=== PATIENT | female | born 1950 | race Caucasian/White ===

== ENCOUNTER 2017-07-28 09:37 | Outpatient (CLI) | payer MEDICARE ==
--- NOTE | 2017-07-28 14:51 | PET ---
PET CT: HISTORY: A 67-year-old female with right breast cancer. Exam requested for staging. Last chemotherapy was in December 2009 and radiation therapy to the right breast in 1997. The patient had a right breast lumpect diana in 1997 and mastectomy in 2009. The patient had right hip deneen and screw plate placement 1 week a go. TECHNIQUE: PET scanning with CT attenuation correction was performed from the base of the brain through the prox imal thighs following the intravenous administration of 12 mCi 15-fluorodeoxyglucose in the left wris t. Imaging was performed after an uptake interval of 46 minutes. COMPARISON: None. FINDINGS: Reba hypermetabolism is seen in the right supraclavicular (SUV 9.6), right pectoral (SUV 7.9), left internal mammary (SUV 6.1), and right internal mammary (superior 12.7 and inferior 16.3) lymph nodes. The hypermetabolic right inferior internal mammary lymphadenopathy appears to extend into the chest wall. Hypermetabolic lesions are seen in the skeleton involving the posterior aspect of the left 5th rib (S UV 4.6), right iliac bone (SUV 11.2), and the right posterior acetabulum (SUV 18.8). These findings are consistent with osseous metastatic disease. Increased uptake in the right proximal femur (SUV 16 .4) is likely due to recent internal fixation of the right proximal femoral fracture. No hypermetabolic pulmonary nodules, liver, or adrenal glands are seen. There is physiologic activity in the GI and tracts and the visualized portions of the brain. The CT scan used for attenuation correction demonstrates no evidence of pleural effusions or ascites. Calcified uterine fibroids are seen. IMPRESSION: Findings are consistent with multiple lymph reba and osseous metastases. POS: SONYA
== END 2017-07-28 09:38 | disposition home or self-care (01) ==
LOC: PET 09:37
PROVIDERS: ATTEND Internal Medicine Hematology & Oncology
DX: C50.919 Malignant neoplasm of unspecified site of unspecified female breast (principal)
CPT/HCPCS: 78815; A9552

== ENCOUNTER 2017-08-01 10:47 | Outpatient (CLI) | payer MEDICARE ==
[~2017-08-01 10:47] MED LIST: Iopamidol 370 76% 100 ML VIAL ONE
--- NOTE | 2017-08-01 14:29 | CT ---
PRE AND POST CONTRAST ENHANCED CT IMAGES IN THE BRAIN: HISTORY: Breast cancer with bone metastases. FINDINGS: Pre and postcontrast-enhanced CT images of the brain obtained. Images demonstrate an area of hyperdensity and calcification in the posterior aspect of the left fron favian inner table of the skull compatible with likely small calcified meningioma. No other obvious calvarial bony lesions seen. The rest of the brain is unremarkable. No evidence of abnormal areas of intracranial enhancement see n. No evidence of intra- or extraaxial mass is seen otherwise. No evidence of abnormal areas of adin ma seen. The ventricles are midline. No evidence of midline shift is seen. IMPRESSION: Unremarkable pre- and postcontrast-enhanced CT images brain. POS: SONYA
== END 2017-08-01 10:48 | disposition home or self-care (01) ==
LOC: CT 10:47
PROVIDERS: ATTEND Internal Medicine Hematology & Oncology
DX: C50.919 Malignant neoplasm of unspecified site of unspecified female breast (principal); C79.51 Secondary malignant neoplasm of bone
CPT/HCPCS: 70470; 82565

== ENCOUNTER 2017-10-27 09:30 | Outpatient (CLI) | payer MEDICARE ==
--- NOTE | 2017-10-27 15:35 | PET ---
PET WITH CT FROM SKULL TO MID THIGH: INDICATION: History of right-sided breast cancer with bone metastasis. RADIOPHARMACEUTICAL: 10.7 mCi of F18-FDG IV. TECHNIQUE: PET images were obtained after administration of the radiopharmaceutical IV. CT images were obtained for attenuation correction purposes only. The examination was compared to a prior PET CT dated 07/28/17. FINDINGS: Biodistribution: The biodistribution for the examination appears acceptable. Head/Neck: No hypermetabolic lymphadenopathy or mass is identified. Thorax: There is a hypermetabolic right internal mammary lymph node seen adjacent to the SVC measuring 1.4 cm with a maximum SUV uptake of 3.3 and a mean uptake of 3.01. This lesion on the prior evaluation was much larger, measuring 2.0 cm, with a maximum SUV uptake of 10.5 and a mean value of 10.5. Additional smaller hypermetabolic lymph nodes are seen along the right internal mammary chain and are much impr florecita in terms of size and hypermetabolic uptake. One of the larger internal mammary lymph nodes seen within the lower aspect of the right internal mammary chain is significantly reduced in size, now 8.0 mm, where it previously measured 3.4 cm. The peak activity on the current exam is 2.99 and mean valu e is 2.99. Peak activity on this lymph node on the prior exam was 13.1 and mean value was 11.4. There is stable postprocedural change of a mitral valve replacement. No hypermetabolic pulmonary nodule or pleural effusion is evident. The hypermetabolic supraclavicular lymph node is no longer demonstrated. The hypermetabolic right axi llary lymph node is no longer demonstrated. Abdomen/Pelvis: There is stable atrophy of the right kidney. No hypermetabolic lymphadenopathy or mass is identified. There is a fibroid uterus. Skin/Osseous Structures: There is some remaining hypermetabolic activity involving the proximal right femur adjacent to the pa tient's right cephalomedullary device, which is suspicious for the presence of an osteoblastic lesion , medially near the lesser trochanter, on image 231. The maximum uptake is 4.5 and mean value is 4.8. The hypermetabolic lesion involving the right ischial tuberosity has decreased in uptake, now measu ring (peak SUV) 1.76 and (mean SUV)1.8. This previously measured 14.18 as a peak uptake and a mean up take of 10.99. The hypermetabolic activity involving the posterior left fifth rib has significantly r educed in prominence, now with a peak activity of 1.48 and mean value of 1.3, where it previously jer sured 4.24 and 3.48. Mild activity is again seen in both AC joints, likely degenerative in nature. IMPRESSION: Abnormal PET CT: 1. Significant improvement in terms of the hypermetabolic lymphadenopathy seen involving the interna l mammary chain on the right, as well as right supraclavicular and right axillary lymph node distribu tions. No new hypermetabolic lymphadenopathy is evident. 2. Significant improvement in the amount of hypermetabolic activity seen involving the osseous metas tatic disease of the ribs and right hemipelvis. There is a focus of hypermetabolic activity with incr eased sclerosis involving the posterior medial calcar and lesser trochanter of the right proximal fem ur likely related to a metastatic lesion in this location. This is also significantly improved from t he prior exam. POS: SONYA
== END 2017-10-27 09:31 | disposition home or self-care (01) ==
LOC: PET 09:30
PROVIDERS: ATTEND Internal Medicine Hematology & Oncology
DX: C79.51 Secondary malignant neoplasm of bone (principal); C50.919 Malignant neoplasm of unspecified site of unspecified female breast; R59.0 Localized enlarged lymph nodes
CPT/HCPCS: 78815; A9552

== ENCOUNTER 2018-03-28 11:09 | Outpatient (CLI) | payer MEDICARE ==
--- NOTE | 2018-03-28 15:44 | PET ---
RADIONUCLIDE PET SCAN WITH CT ATTENUATION CORRECTION: HISTORY: Breast cancer with metastatic disease. Restaging. COMPARISON: 10/27/17. FINDINGS: Physiologic uptake of radiotracer throughout the enteric system and along each urinary tract. The pre viously hypermetabolic right internal mammary lymph node is no longer visible, with no abnormal uptak e along the right internal mammary chain on the current study. In the areas of previously described hypermetabolic activity associated with the bones of the pelvis, no hypermetabolic activity is apparent on the current exam. No new areas of abnormal uptake are evident. Right breast is surgically absent. IMPRESSION: Complete response to therapy, with resolution of the adenopathy and hypermetabolic bone lesions. No n ew abnormalities are evident. POS: SONYA
== END 2018-03-28 11:10 | disposition home or self-care (01) ==
LOC: PET 11:09
PROVIDERS: ATTEND Internal Medicine Hematology & Oncology
DX: C50.919 Malignant neoplasm of unspecified site of unspecified female breast (principal); C79.51 Secondary malignant neoplasm of bone; R59.9 Enlarged lymph nodes, unspecified
CPT/HCPCS: 78815; A9552

== ENCOUNTER 2018-09-19 11:27 | Outpatient (CLI) | payer MEDICARE ==
--- NOTE | 2018-09-19 14:15 | PET ---
EXAM: PET/CT HISTORY: 68-year-old female with breast cancer and bone metastases. Status post chemoradiation therapy. Exam r equested for restaging TECHNIQUE: PET scanning with CT attenuation correction was performed from the base of the brain to the proximal thighs following the intravenous administration of 12 millicuries [id number]. COMPARISON: 03/28/2018 CORRELATION: None FINDINGS: No kelle hypermetabolism is seen in the neck, chest, axillae, abdomen or pelvis. No hypermetabolic pulmonary nodules, liver, adrenal or skeletal lesions are seen. There is physiologic activity in the GI and tracts and the visualized portions of the brain. The CT scan used for attenuation correction demonstrates no evidence of pleural effusions or ascites. IMPRESSION: No evidence of metastatic disease.
== END 2018-09-19 11:28 | disposition home or self-care (01) ==
LOC: PET 11:27
PROVIDERS: ATTEND Internal Medicine Hematology & Oncology
DX: C50.919 Malignant neoplasm of unspecified site of unspecified female breast (principal); C79.51 Secondary malignant neoplasm of bone
CPT/HCPCS: 78815; A9552

== ENCOUNTER 2019-04-03 13:14 | Outpatient (CLI) | payer MEDICARE ==
--- NOTE | 2019-04-03 13:27 | PET ---
Exam: PET CT skull to mid thigh COMPARISON: 09/19/[address] HISTORY: Malignant neoplasm unspecified site right female breast TECHNIQUE: A PET/CT was performed from the skull to the mid thigh after administration of 11.2 millic uries of F-18 FDG. Evaluation was performed on a [employer] workstation. FINDINGS: NECK: No areas of hypermetabolic activity CHEST: No areas of hypermetabolic activity ABDOMEN/PELVIS: No areas of hypermetabolic activity SKELETON: No areas of hypermetabolic activity CT images used for attenuation correction show no significant interval detrimental change. IMPRESSION: No evidence of hypermetabolic disease.
== END 2019-04-03 13:15 | disposition home or self-care (01) ==
LOC: PET 13:14
PROVIDERS: ATTEND Internal Medicine Hematology & Oncology
DX: C50.911 Malignant neoplasm of unspecified site of right female breast (principal); C79.51 Secondary malignant neoplasm of bone
CPT/HCPCS: 78815; A9552

== ENCOUNTER 2019-12-18 09:11 | Outpatient (CLI) | payer MEDICARE ==
--- NOTE | 2019-12-18 12:32 | PET ---
PET W CT Skull to Mid Thigh History: Malignant neoplasm of unspecified site of right female breast, secondary malignant neoplasm of bone. Comparison: Multiple prior PET/CT examinations, most recent April 03, 2019 Findings: PET CT performed after the intravenous administration 10.9 mCi FDG F-18. Imaging was done f rom the skull-mid thigh. Noncontrast CT was performed for attenuation correction. Symmetric intracranial uptake of radiotracer. No abnormal uptake within the lungs. No new osseous met astatic disease. Prior right mastectomy. New sclerosis of the right SI joint could be sequelae of treated metastasis. There is sclerosis of th e right ischium. No hepatic metastatic disease. Atrophic right kidney with dilatation of the collecting system. No axillary adenopathy or internal mammary adenopathy. Noncontrast evaluation demonstrates relatively clear lungs. Focal fatty hepatic infiltration around t he falciform ligament. Calcified granuloma of the spleen. No dilated loops of large or small bowel. Fibroid uterus. Impression: Continued complete response to therapy without any FDG avid metastatic disease.
== END 2019-12-18 09:12 | disposition home or self-care (01) ==
LOC: PET 09:11
PROVIDERS: ATTEND Internal Medicine Hematology & Oncology
DX: C50.911 Malignant neoplasm of unspecified site of right female breast (principal); C79.51 Secondary malignant neoplasm of bone; C78.7 Secondary malignant neoplasm of liver and intrahepatic bile duct
CPT/HCPCS: 78815; A9552

== ENCOUNTER 2020-05-15 10:24 | Outpatient (CLI) | payer MEDICARE ==
--- NOTE | 2020-05-15 14:02 | PET ---
EXAM: PET/CT HISTORY: Malignant neoplasm of the breast with osseous metastatic disease TECHNIQUE: PET scanning with CT attenuation correction was performed from the base of the brain to the proximal thighs following the intravenous administration of 10.9 millicuries [id number]. COMPARISON: Prior PET/CT dated December 18, 2019 FINDINGS: Biodistribution:The biodistribution for the exam appears acceptable. Head and neck: There is appropriate background activity within the brain. No hypermetabolic lymphaden opathy or masses identified. Thorax: No hypermetabolic pulmonary lesion, pleural effusion or lymphadenopathy is present. There is postsurgical change of a right mastectomy. There is postprocedural change of a mitral valvular replacement. Abdomen and pelvis: There is expected background activity within the GI and systems. No hypermetab olic mass, lymphadenopathy or ascites is present. Stable prominent atrophy of the right kidney. There are calcified granuloma within the spleen. No toribio e fluid is demonstrated. There is fibroid uterus. Osseous structures and skin: No hypermetabolic skin or osseous lesion is identified. Healed metastati c lesions involving the right ilium and posterior left fifth rib are stable. Sclerotic changes surrounding the instrumented right femur is stable. No new suspicious osseous lesions are identified. IMPRESSION: 1. Findings consistent with continued response to therapy. 2. No evidence to suggest hypermetabolic metastatic disease.
== END 2020-05-15 10:25 | disposition home or self-care (01) ==
LOC: PET 10:24
PROVIDERS: ATTEND Internal Medicine Hematology & Oncology
DX: C50.919 Malignant neoplasm of unspecified site of unspecified female breast (principal); C79.51 Secondary malignant neoplasm of bone
CPT/HCPCS: 78815; A9552

== ENCOUNTER 2020-11-10 10:26 | Outpatient (CLI) | payer MEDICARE | END 2020-11-10 10:27 | disposition home or self-care (01) | LOC: PET 10:26 | PROVIDERS: ATTEND Internal Medicine Hematology & Oncology | DX: C50.911 Malignant neoplasm of unspecified site of right female breast (principal); C79.51 Secondary malignant neoplasm of bone | CPT/HCPCS: 78815; A9552 ==

== ENCOUNTER 2021-05-19 09:16 | Outpatient (CLI) | payer MEDICARE | END 2021-05-19 09:17 | disposition home or self-care (01) | LOC: PET 09:16 | PROVIDERS: ATTEND Internal Medicine Hematology & Oncology | DX: C50.911 Malignant neoplasm of unspecified site of right female breast (principal); C79.51 Secondary malignant neoplasm of bone | CPT/HCPCS: 78815; A9552 ==

== ENCOUNTER 2021-11-24 12:45 | Outpatient (CLI) | payer MEDICARE | END 2021-11-24 12:46 | disposition home or self-care (01) | LOC: PET 12:45 | PROVIDERS: ATTEND Internal Medicine Hematology & Oncology | DX: Z08 Encounter for follow-up examination after completed treatment for malignant neoplasm (principal); Z85.3 Personal history of malignant neoplasm of breast | CPT/HCPCS: 78815; A9552 ==

== ENCOUNTER → 2022-03-25 | Outpatient (CLI) | payer MEDICARE | LOC: PET 09:30 | PROVIDERS: ATTEND Internal Medicine Hematology & Oncology | DX: C79.51 Secondary malignant neoplasm of bone (principal); Z85.3 Personal history of malignant neoplasm of breast | CPT/HCPCS: 78815; A9552 ==

== ENCOUNTER 2023-05-24 10:15 | Outpatient (CLI) | payer MEDICARE | END 2023-05-24 10:16 | LOC: PET 10:15 | PROVIDERS: ATTEND Internal Medicine Hematology & Oncology | DX: C50.919 Malignant neoplasm of unspecified site of unspecified female breast (principal); C79.51 Secondary malignant neoplasm of bone | CPT/HCPCS: 78815; A9552 ==

== ENCOUNTER 2023-11-28 10:15 | Outpatient (CLI) | payer MEDICARE | END 2023-11-28 10:16 | disposition home or self-care (01) | LOC: PET 10:15 | PROVIDERS: ATTEND Internal Medicine Hematology & Oncology | DX: C79.51 Secondary malignant neoplasm of bone (principal) | CPT/HCPCS: 78815; A9552 ==

== ENCOUNTER 2024-05-22 08:45 | Outpatient (CLI) | payer MEDICARE | END 2024-05-22 08:46 | disposition home or self-care (01) | LOC: PET 08:45 | PROVIDERS: ATTEND Internal Medicine Hematology & Oncology | DX: C79.51 Secondary malignant neoplasm of bone (principal); Z85.3 Personal history of malignant neoplasm of breast | CPT/HCPCS: 78815; A9552 ==

== ENCOUNTER 2025-05-17 08:00 | Outpatient (CLI) | payer MEDICARE | END 2025-05-17 08:01 | disposition home or self-care (01) | LOC: PET 08:00 | PROVIDERS: ATTEND Internal Medicine Hematology & Oncology | DX: C79.51 Secondary malignant neoplasm of bone (principal); Z85.3 Personal history of malignant neoplasm of breast | CPT/HCPCS: 78815; A9552 ==